=== PATIENT | female | born 1985 | race Caucasian/White ===

== ENCOUNTER 2016-03-28 23:18 | Emergency (ER) | payer OTHER ==
[~2016-03-28] VITALS: Ht 165.1 cm; Wt 63.2 kg
[2016-03-28 23:21] VITALS: BP 130/85; PULSE 113; RESP 20; O2SAT 100
--- NOTE | 2016-03-28 23:33 | ED.REPORT ---
HPI-Trauma Minor / Fall Date of Service Mar 28, 2016 ED Provider: Toro Kong MD Pt is a healthy 30 y/o female who presents to ER complaining of low back and tailbone pain status post fall down stairs 2 days ago. She states that her feet slipped out from under her while walking down stairs, causing her to land directly on her tailbone on the stairs. Pain radiates up her back and abdomen since. Associated symptom of rash overlying her low back, onset since the fall. Patient does not voice any further medical complaints or injuries. Nursing Notes Stated Complaint: FALL, TAILBONE PAIN Chief Complaint: Multiple Trauma/Fall Nursing Notes Reviewed: Yes Allergies: Coded Allergies: Penicillins (Verified Allergy, Unknown, 03/28/16) Scheduled PRN Cyclobenzaprine (Cyclobenzaprine) 10 Mg Tablet 10 MG PO TID PRN PRN Spasm General Time Seen by MD: 23:32 Chief Complaint Fall down stairs, Other (Back Injury) Hx Obtained From: Patient Arrived By: Walk-in Onset Occurred: 2 days ago Symptom Duration: Constant Caused by: Accidental, Fall down stairs Context: Occurred at: Home injury Location: Back Quality: Painful Severity: Current: Pain level 10 out of 10 (reports pain is "greater than 10") Similar Sx Previous: No Past Medical History Past Medical History None available Ambulatory Status Independent Review of Systems Musculoskeletal: Reports: Back pain, Lumbar pain, Neck pain, Denies: Extremity pain, Joint pain, Thoracic pain Skin: Reports Rash, Reports Swelling, Denies Diaphoresis Neurologic: Denies: Bladder dysfunction, Bowel dysfunction, Headache, Numbness , Syncope Complete sys rev & neg: except as marked. Physical Exam Physical Exam Notes: Initial Vital Signs Vital Signs (First) Date Time Temp Pulse Resp B/P Pulse Ox O2 Delivery O2 Flow Rate FiO2 03/28/16 23:21 36.3 113 20 130/85 100 03/29/16 00:45 Room Air Initial VS: Reviewed Head / Eyes: Atraumatic, Normocephalic, PERRL Respiratory: Breath sounds normal, Clear to auscultation, No respiratory distress Cardiovascular: Regular rate & rhythm, Heart sounds normal, Intact distal pulses Abdomen / GI: Soft, Non-tender, No guarding, No rebound, No distention Extremities: Vascular intact, Neuro intact, No swelling, No tenderness Neurologic: Alert, Oriented, Nonfocal Psychiatric: Mood/affect normal, Behavior normal, Normal thought content General/Constitutional: Awake, Alert, Well developed, Well nourished Distress / Hydration: Positive: Distress mild Appearance / Presentation: Positive: In pain, Uncomfortable Neck: No swelling Neck / Muscle Tenderness: Positive: Midline tenderness mid Soft Tissue Neck: Negative: Crepitus present Trauma - Neck Specific: Positive: Paraspinal tender R No deformity Flank / Spine / Paraspinal: Positive: Coccyx tender, Lumbar paraspinal tend... (Right), Lumbar spine tender..., Sacral spine tender..., Thoracic spine tender..., Negative: Swelling present Trauma - Back Specific: Negative: Crepitus present Diffuse midline tenderness the length of her spine. No deformity. Color / Condition: Positive: Rash present Rash / Lesion Notes: Erythematous excoriated rash 10 cm square overlying the left lumbar paraspinal region. Rash / Lesion Location: Positive: Back Interpretation & Diagnostics X-Ray Interpretation Xray Interpretation: Study Performed: Lumbar spine X-ray Interpretation / Wet Read by: Wet read ED physician Interpretation: No fracture/dislocation Re-Eval/Medical Decision Counseled Regarding: Diagnosis, Need for follow-up, When/why to return to ED Discharge & Departure Impression: Primary Impression: Lumbosacral injury Encounter type: initial encounter Qualified Code: S39.92XA - Unspecified injury of lower back, initial encounter Additional Impressions: Coccyx pain Cervical pain (neck) Disposition: Home Discharge Condition All VS Reviewed: Yes Condition: Stable Patient Instructions: Contusions in Adults (ED) Additional Instructions: No fractures are suspected at this time. I suspect that most of your pain is related to muscular spasm. I recommend ibuprofen 800 mg every 8 hours and cyclobenzaprine 10 mg 3 times a day as needed for muscle spasm. Follow up in a week if symptoms are not dramatically improved. Follow-up right away for incontinence or weakness. Referrals: Karuna Torres CNM (PCP) Mak Attestation Portions of this note were transcribed by Sharad Multani and Arnaldo Gonzalez. I, personally performed the history, physical exam and medical decision -making; I reviewed and confirmed the accuracy of the information in the transcribed note. Signed by:Mak Diane, 03/29/16 and 02:58 copies to: Karuna Torres CNM, Kirk H MD Mar 28, 2016 23:33 Sharad Multani Mar 28, 2016 23:40 ARNALDO GONZALEZ Mar 29, 2016 02:17
[2016-03-28] MEDS ORDERED: Ketorolac 30 mg/mL 2 mL Inj IM ONE (23:40)
[2016-03-29] MEDS ORDERED: CYCL10TA9 PO (00:32)
[2016-03-29 00:45] VITALS: BP 126/72; PULSE 105; RESP 18; O2SAT 100
--- NOTE | 2016-03-29 10:00 | DRSVH ---
PROCEDURE: X-RAY LUMBAR SPINE, 2 OR 3 VIEW INDICATIONS: trauma TECHNIQUE: 3 views of the lumbar spine were acquired. COMPARISON: None. FINDINGS: Bones: 5 [id number] vertebrae are present. Minimal leftward curvature.. No vertebral body comp ression fractures. No suspicious bony lesions. Of note, there is prominent anterior angulation of t he lower sacrum and coccyx is which may be related to normal anatomic variant. Correlate with rectal exam. Soft tissues: Overlying bowel gas pattern is normal. No suspicious soft tissue calcifications. Cho lecystectomy clips. IMPRESSION: No displaced fracture seen. If there is continued pain, followup exam or additional yeimi ging such as MRI or CT could be performed for further assessment. Dictated by: Nguyễn Reeves RRA Interpreted: Lilia Wang MD on 03/29/2016 at 10:00 Transcribed by: [email or web address] on 03/29/2016 at 10:00 Approved by: Lilia Wang MD, PhD on 03/29/2016 at 16:34
== END 2016-03-29 00:46 | disposition home or self-care (01) ==
LOC: SED 23:18
DX: S39.92XA Unspecified injury of lower back, initial encounter (principal); W10.8XXA Fall (on) (from) other stairs and steps, initial encounter; Y92.009 Unspecified place in unspecified non-institutional (private) residence as the place of occurrence of the external cause; Y93.01 Activity, walking, marching and hiking; Y99.8 Other external cause status; M53.3 Sacrococcygeal disorders, not elsewhere classified; M54.2 Cervicalgia; R21 Rash and other nonspecific skin eruption; Z88.0 Allergy status to penicillin
CPT/HCPCS: 72100; 96372; 99284; J1885